=== PATIENT | female | born 1960 | race Caucasian/White ===

== ENCOUNTER 2016-03-10 06:43 | Day surgery (SDC) | payer MEDICARE, MEDICAID ==
[2016-03-10] VITALS (7 sets, daily range): BP systolic 138–164; BP diastolic 49–81; PULSE 80–114; TEMP 98.1–98.2
[~2016-03-10] VITALS: Ht 162.6 cm; Wt 82.8 kg
[~2016-03-10 06:43] MED LIST: ADVAIR 100/28 DISKUS IH; ADVAIR IH; ALBUTEROL0.09 MG/A1 IH; AMOXICILLIN 50500 MG PO; BACTRIM DS 8001 TAB PO; BUSPAR5 MG; CEPHALEXIN500 M1 PO; COLACE 100100 MG/CAP PO; CYMBALTA 30MG30 MG PO; DOXYCYCLINE 10100 MG PO; FLEXERIL 1010 MG/TAB PO; FLEXERIL10 MG PO; KEPPRA 500MG500 MG PO; LAMICTAL 100MG100 MG PO; LORTAB 5/500 501 TAB PO; MACROBID 1100 MG/CAP PO; MEDROL 4MG DOSPA4 MG PO; MOBIC15 MG PO; MOTRIN800 MG PO; NAPROSYN500 MG PO; NO HOME MEDICATIONS; NORCO 325 MG-51 TAB PO; NORCO 325 MG-7.1 TAB PO; PEN-VEE K500 MG PO; PERCOCET 325 MG1 TA2 PO; PREDNISONE20 MG PO; PRISTIQ 50 MG T50 MG PO; PRISTIQ25 MG PO; PROVENTIL0.09 MG/A1 IH; ROXICODONE 55 MG/TAB PO; RT ADVAIR 228 DISKUS IH; SEPTRA DS 8001 TAB PO; SEROQUEL50 MG PO; SINGULAIR; SINGULAIR10 MG PO; TYLENOL 325MG325 MG PO; ULTRAM 50MG TAB50 MG PO; VENTOLIN0.09 MG IH; VICODIN 5/5001 UDTAB PO; ZOCOR 20MG20 MG PO; ZOFRAN ODT4 MG PO; lamictal; same
[2016-03-10] MEDS ORDERED: NEURONTIN300 MG/CAP PO (08:19)
[2016-03-10] MEDS ORDERED: ZANAFLEX 4MG TAB4 MG PO (08:20)
[2016-03-10] MEDS ORDERED: VENTOLIN0.09 MG IH (08:22)
[2016-03-10] MEDS ORDERED: STOOL SOFTENER100 M2 PO (08:23)
[2016-03-10] MEDS ORDERED: TYLENOL 500MG500 MG PO (08:23)
[2016-03-10] MEDS ORDERED: ADVIL200 MG PO (08:24)
[2016-03-10] MEDS ORDERED: PERCOCET 325 MG1 TA2 PO (16:41)
== END 2016-03-10 20:00 | disposition home or self-care (01) ==
LOC: SDCO 06:43 → SURG 17:25 → SDCO 20:00
DX: C50.512 Malignant neoplasm of lower-outer quadrant of left female breast (principal); C50.411 Malignant neoplasm of upper-outer quadrant of right female breast; Z17.0 Estrogen receptor positive status [ER+]; F17.210 Nicotine dependence, cigarettes, uncomplicated
CPT/HCPCS: OP; A9541; J0690; J1100; J1170; J2405; J2704; J3010; J7120; Q9968

== ENCOUNTER 2016-04-01 09:52 | Day surgery (SDC) | payer MEDICARE, MEDICAID ==
[~2016-04-01] VITALS: Ht 162.6 cm; Wt 83.9 kg
[~2016-04-01 09:52] MED LIST changes: +ADVIL200 MG PO; +NEURONTIN300 MG/CAP PO; +STOOL SOFTENER100 M2 PO; +TYLENOL 500MG500 MG PO; +ZANAFLEX 4MG TAB4 MG PO
[2016-04-01] MEDS ORDERED: NORCO 325 MG-51 TAB PO (10:37)
[2016-04-01 11:35] VITALS: BP 143/85; PULSE 84; TEMP 98
[2016-04-01 14:05] VITALS: BP 134/63; PULSE 68; TEMP 97.6
[2016-04-01] MEDS ORDERED: PERCOCET 325 MG1 TA2 PO (14:05)
[2016-04-01 14:20] VITALS: BP 156/85; PULSE 76
[2016-04-01 14:35] VITALS: BP 159/80; PULSE 76
[2016-04-01 14:50] VITALS: BP 164/77; PULSE 75
== END 2016-04-01 15:00 | disposition home or self-care (01) ==
LOC: SDCO 09:52
DX: C50.412 Malignant neoplasm of upper-outer quadrant of left female breast (principal); C50.511 Malignant neoplasm of lower-outer quadrant of right female breast; C77.3 Secondary and unspecified malignant neoplasm of axilla and upper limb lymph nodes; F17.210 Nicotine dependence, cigarettes, uncomplicated
CPT/HCPCS: C1788; J0690; J1644; J2405; J2704; J3010; J7120

== ENCOUNTER 2016-09-04 14:15 | Outpatient (RCR) | payer MEDICARE, MEDICAID | END 2016-11-01 | disposition still patient (30) | LOC: MKS.ESL.PT | DX: C50.412 Malignant neoplasm of upper-outer quadrant of left female breast (principal); C50.511 Malignant neoplasm of lower-outer quadrant of right female breast; C77.3 Secondary and unspecified malignant neoplasm of axilla and upper limb lymph nodes; N64.4 Mastodynia; Z90.89 Acquired absence of other organs; Z90.12 Acquired absence of left breast and nipple; Z92.21 Personal history of antineoplastic chemotherapy | CPT/HCPCS: G8984-GP; G8985-GP ==

== ENCOUNTER 2017-04-03 20:10 | Emergency (ER) | payer MEDICARE, MEDICAID ==
[~2017-04-03] VITALS: Ht 160 cm; Wt 81.8 kg
[2017-04-03 20:15] VITALS: BP 114/66; TEMP 99.5
[2017-04-03] MEDS ORDERED: ARIMIDEX1 MG PO (22:01)
[2017-04-03] MEDS ORDERED: FLEXERIL 1010 MG/TAB PO (22:48)
[2017-04-03 23:06] VITALS: PULSE 72
== END 2017-04-03 23:06 | disposition home or self-care (01) ==
LOC: COL.ER 20:10
DX: S30.0XXA Contusion of lower back and pelvis, initial encounter (principal); M54.5 Low back pain; G89.29 Other chronic pain; Z85.3 Personal history of malignant neoplasm of breast; W00.0XXA Fall on same level due to ice and snow, initial encounter

== ENCOUNTER 2017-05-02 10:10 | Emergency (ER) | payer MEDICARE, MEDICAID ==
[~2017-05-02] VITALS: Ht 160 cm; Wt 86.4 kg
[~2017-05-02 10:10] MED LIST changes: +ARIMIDEX1 MG PO
[2017-05-02 10:20] VITALS: BP 130/62; TEMP 98.4
[2017-05-02 11:13] VITALS: PULSE 83
== END 2017-05-02 11:05 | disposition home or self-care (01) ==
LOC: COL.ER 10:10
DX: G89.29 Other chronic pain (principal); M54.9 Dorsalgia, unspecified; F31.9 Bipolar disorder, unspecified; F17.210 Nicotine dependence, cigarettes, uncomplicated; Z85.3 Personal history of malignant neoplasm of breast

== ENCOUNTER → 2017-05-03 | Outpatient (CLI) | payer MEDICARE, MEDICAID | LOC: MHCPAIN 10:05 | DX: G89.29 Other chronic pain (principal); M79.2 Neuralgia and neuritis, unspecified; M79.1 Myalgia; M54.9 Dorsalgia, unspecified | CPT/HCPCS: G0463 ==

== ENCOUNTER → 2017-05-03 | Outpatient (CLI) | payer MEDICARE, MEDICAID | LOC: MC.RAD 14:16 | DX: Z85.3 Personal history of malignant neoplasm of breast (principal); Z98.890 Other specified postprocedural states; Z92.3 Personal history of irradiation ==

== ENCOUNTER → 2017-07-05 | Outpatient (CLI) | payer MEDICARE, MEDICAID | LOC: MHCPAIN 12:46 | DX: G89.29 Other chronic pain (principal); M47.814 Spondylosis without myelopathy or radiculopathy, thoracic region; M79.2 Neuralgia and neuritis, unspecified; F17.200 Nicotine dependence, unspecified, uncomplicated | CPT/HCPCS: G0463 ==

== ENCOUNTER 2017-07-28 15:45 | Outpatient (RCR) | payer MEDICARE, MEDICAID | END 2017-08-03 | disposition home or self-care (01) | LOC: MKS.ESL.PT | DX: I97.2 Postmastectomy lymphedema syndrome (principal); C50.511 Malignant neoplasm of lower-outer quadrant of right female breast; C50.512 Malignant neoplasm of lower-outer quadrant of left female breast; M54.6 Pain in thoracic spine | CPT/HCPCS: G8978-GP; G8979-GP ==

== ENCOUNTER → 2017-11-02 | Outpatient (CLI) | payer MEDICARE, MEDICAID | LOC: MC.RAD 13:35 | DX: C50.511 Malignant neoplasm of lower-outer quadrant of right female breast (principal); Z90.10 Acquired absence of unspecified breast and nipple; Z98.890 Other specified postprocedural states ==

== ENCOUNTER 2018-01-31 13:58 | Emergency (ER) | payer MEDICARE, MEDICAID ==
[~2018-01-31] VITALS: Ht 160 cm; Wt 80.9 kg
[2018-01-31 14:13] VITALS: BP 157/92; PULSE 126; TEMP 97.8
== END 2018-01-31 15:45 | disposition left against medical advice (07) ==
LOC: COL.ER 13:58
DX: M25.511 Pain in right shoulder (principal)

== ENCOUNTER 2018-03-09 06:44 | Day surgery (SDC) | payer MEDICARE, MEDICAID ==
[~2018-03-09] VITALS: Ht 160 cm; Wt 83.3 kg
[2018-03-09] MEDS ORDERED: PAMELOR50 MG PO (07:09)
[2018-03-09] MEDS ORDERED: CYMBALTA 60MG60 MG PO (07:09)
[2018-03-09] MEDS ORDERED: 00186-0370-20 IH (07:10)
[2018-03-09] MEDS ORDERED: GLUCOPHAGE1000 MG PO (07:10)
[2018-03-09 07:27] VITALS: BP 117/79; PULSE 102; TEMP 97.6
[2018-03-09 08:30] VITALS: BP 109/80; PULSE 90; TEMP 97.6
--- NOTE | 2018-03-09 08:30 | NUR ---
PATIENT BACK FROM ENDO SUITE AFTER COLONOSCOPY. PATIENT WIDE AWAKE, TALKING TO NURSE. AMBULATED BACK TO CHAIR WITHOUT ASSISTANCE. IV FLUIDS INFUSING. VS APPEAR STABLE. NO COMPLAINT OF PAIN. WILL GET PATIENT FOOD AND DRINK. WILL CONTINUE TO MONITOR.
[2018-03-09 08:48] VITALS: BP 105/74; PULSE 92
--- NOTE | 2018-03-09 08:48 | NUR ---
PATIENT ALERT AND ORIENTED, TALKING WITH DAUGHTER. NO COMPLAINTS OF NAUSEA AND VOMITING WITH FOOD OR DRINK. VS APPEAR STABLE. DR HAS ALREADY TALKED TO DAUGHTER BEFORE PATIENT WAS BACK FROM ENDO SUITE. WILL TAKE OUT IV AND DISCHARGE PATIENT.
[2018-03-09 08:53] VITALS: BP 113/76; PULSE 91
== END 2018-03-09 09:00 | disposition home or self-care (01) ==
LOC: SDCO 06:44
DX: Z12.11 Encounter for screening for malignant neoplasm of colon (principal); Z85.3 Personal history of malignant neoplasm of breast; F17.210 Nicotine dependence, cigarettes, uncomplicated; K21.9 Gastro-esophageal reflux disease without esophagitis; J45.909 Unspecified asthma, uncomplicated; G89.29 Other chronic pain; M54.9 Dorsalgia, unspecified; R56.9 Unspecified convulsions; Z79.899 Other long term (current) drug therapy; E11.9 Type 2 diabetes mellitus without complications; Z79.84 Long term (current) use of oral hypoglycemic drugs
CPT/HCPCS: G0121; OP; J2250; J2704; J3010; J7030

== ENCOUNTER 2018-04-24 12:04 | Emergency (ER) | payer MEDICARE, MEDICAID | END 2018-04-24 15:03 | disposition left against medical advice (07) | LOC: COL.ER 12:04 | DX: E86.0 Dehydration (principal) ==

== ENCOUNTER → 2018-04-27 | Outpatient (CLI) | payer MEDICARE, MEDICAID ==
[~2018-04-27] MED LIST changes: +00186-0370-20 IH; +00186-0372-20 IH; +CYMBALTA 60MG60 MG PO; +GLUCOPHAGE1000 MG PO; +PAMELOR50 MG PO
== END ==
LOC: MC.RAD 12:25
DX: Z92.3 Personal history of irradiation (principal); Z98.890 Other specified postprocedural states; Z85.3 Personal history of malignant neoplasm of breast
CPT/HCPCS: G0279

== ENCOUNTER 2018-06-13 15:15 | Outpatient (RCR) | payer MEDICARE, MEDICAID | END 2018-06-21 10:20 | disposition home or self-care (01) | LOC: MKS.ESL.PT 15:15 | DX: I89.0 Lymphedema, not elsewhere classified (principal); M25.512 Pain in left shoulder; Z85.3 Personal history of malignant neoplasm of breast; Z90.13 Acquired absence of bilateral breasts and nipples; Z92.3 Personal history of irradiation; Z98.890 Other specified postprocedural states ==

== ENCOUNTER 2018-06-26 12:27 | Emergency (ER) | payer MEDICARE, MEDICAID ==
[~2018-06-26] VITALS: Ht 162.6 cm; Wt 80.8 kg
[2018-06-26 12:34] VITALS: BP 99/64
[2018-06-26 14:07] VITALS: PULSE 86; TEMP 97.8
== END 2018-06-26 14:07 | disposition home or self-care (01) ==
LOC: COL.ER 12:27
DX: M79.644 Pain in right finger(s) (principal); E11.9 Type 2 diabetes mellitus without complications; I10 Essential (primary) hypertension; J45.909 Unspecified asthma, uncomplicated; Z85.3 Personal history of malignant neoplasm of breast; F31.9 Bipolar disorder, unspecified; F17.210 Nicotine dependence, cigarettes, uncomplicated; Z79.84 Long term (current) use of oral hypoglycemic drugs

== ENCOUNTER → 2018-10-25 | Outpatient (CLI) | payer MEDICARE, MEDICAID | LOC: MHCPAIN 13:53 | DX: G89.29 Other chronic pain (principal); M47.817 Spondylosis without myelopathy or radiculopathy, lumbosacral region; M53.3 Sacrococcygeal disorders, not elsewhere classified; M47.814 Spondylosis without myelopathy or radiculopathy, thoracic region | CPT/HCPCS: G0463 ==

== ENCOUNTER 2018-12-12 14:45 | Outpatient (RCR) | payer MEDICARE, MEDICAID | END 2019-02-15 | disposition home or self-care (01) | LOC: MKS.ESL.PT | DX: M47.817 Spondylosis without myelopathy or radiculopathy, lumbosacral region (principal); M47.814 Spondylosis without myelopathy or radiculopathy, thoracic region; G89.29 Other chronic pain ==

== ENCOUNTER → 2019-04-19 | Outpatient (CLI) | payer MEDICARE, MEDICAID | LOC: MHCPAIN 13:47 | DX: M54.5 Low back pain (principal); M53.3 Sacrococcygeal disorders, not elsewhere classified; Z85.3 Personal history of malignant neoplasm of breast | CPT/HCPCS: G0463 ==

== ENCOUNTER → 2019-05-01 | Outpatient (CLI) | payer MEDICARE, MEDICAID | LOC: MC.RAD 09:54 | DX: Z12.31 Encounter for screening mammogram for malignant neoplasm of breast (principal); Z98.890 Other specified postprocedural states; Z98.82 Breast implant status; Z92.3 Personal history of irradiation; Z85.3 Personal history of malignant neoplasm of breast ==

== ENCOUNTER 2019-05-17 13:15 | Outpatient (RCR) | payer MEDICARE, MEDICAID | END 2019-07-26 | disposition home or self-care (01) | LOC: MKS.ESL.PT | DX: M53.3 Sacrococcygeal disorders, not elsewhere classified (principal); M54.16 Radiculopathy, lumbar region; G89.29 Other chronic pain ==

== ENCOUNTER → 2019-08-15 | Outpatient (CLI) | payer MEDICARE, MEDICAID | LOC: MHCPAIN 14:50 | DX: M47.814 Spondylosis without myelopathy or radiculopathy, thoracic region (principal); M54.5 Low back pain; M53.3 Sacrococcygeal disorders, not elsewhere classified; M54.16 Radiculopathy, lumbar region; G89.29 Other chronic pain | CPT/HCPCS: G0463 ==

== ENCOUNTER 2019-09-27 15:45 | Outpatient (RCR) | payer MEDICARE, MEDICAID | END 2019-11-20 | disposition home or self-care (01) | LOC: MKS.ESL.PT | DX: M54.16 Radiculopathy, lumbar region (principal) ==

== ENCOUNTER → 2020-05-31 | Outpatient (CLI) | payer MEDICARE, MEDICAID ==
[~2020-05-31] MED LIST changes: +MOTRIN 400400 MG/TAB PO; +ROBAXIN 50500 MG/TAB PO
== END ==
LOC: MC.RAD 14:04
DX: Z12.31 Encounter for screening mammogram for malignant neoplasm of breast (principal); Z98.890 Other specified postprocedural states; Z92.3 Personal history of irradiation; Z85.3 Personal history of malignant neoplasm of breast

== ENCOUNTER 2020-06-03 13:32 | Emergency (ER) | payer MEDICARE, MEDICAID ==
[~2020-06-03] VITALS: Ht 160 cm; Wt 71.8 kg
[~2020-06-03 13:32] MED LIST changes: -MOTRIN 400400 MG/TAB PO; -ROBAXIN 50500 MG/TAB PO
[2020-06-03 13:52] VITALS: BP 120/82; TEMP 98.2
[2020-06-03] MEDS ORDERED: ROBAXIN 50500 MG/TAB PO (15:32)
[2020-06-03] MEDS ORDERED: MOTRIN 400400 MG/TAB PO (15:32)
[2020-06-03 15:46] VITALS: PULSE 98
== END 2020-06-03 15:46 | disposition home or self-care (01) ==
LOC: COL.ER 13:32
DX: S09.90XA Unspecified injury of head, initial encounter (principal); M54.2 Cervicalgia; M54.6 Pain in thoracic spine; Z79.51 Long term (current) use of inhaled steroids; Z79.84 Long term (current) use of oral hypoglycemic drugs; W01.198A Fall on same level from slipping, tripping and stumbling with subsequent striking against other object, initial encounter; Y92.096 Garden or yard of other non-institutional residence as the place of occurrence of the external cause

== ENCOUNTER 2020-07-10 15:30 | Outpatient (RCR) | payer MEDICARE, MEDICAID ==
[~2020-07-10 15:30] MED LIST changes: +MOTRIN 400400 MG/TAB PO; +ROBAXIN 50500 MG/TAB PO
== END 2020-09-29 ==
LOC: MKS.ESL.PT
DX: Z85.3 Personal history of malignant neoplasm of breast (principal); Z87.2 Personal history of diseases of the skin and subcutaneous tissue

== ENCOUNTER → 2020-12-02 | Outpatient (CLI) | payer MEDICARE, MEDICAID | LOC: MHCPAIN 15:23 | DX: M47.814 Spondylosis without myelopathy or radiculopathy, thoracic region (principal); M54.6 Pain in thoracic spine; M79.2 Neuralgia and neuritis, unspecified; G89.29 Other chronic pain | CPT/HCPCS: G0463 ==

== ENCOUNTER → 2021-06-04 | Outpatient (CLI) | payer MEDICARE, MEDICAID | LOC: MC.RAD 13:35 | DX: Z12.31 Encounter for screening mammogram for malignant neoplasm of breast (principal); Z85.3 Personal history of malignant neoplasm of breast ==

== ENCOUNTER 2021-09-07 08:59 | Emergency (ER) | payer MEDICARE, MEDICAID ==
[~2021-09-07] VITALS: Ht 160 cm; Wt 70.5 kg
== END 2021-09-07 10:00 | disposition home or self-care (01) ==
LOC: COL.ER 08:59
DX: M54.41 Lumbago with sciatica, right side (principal)

== ENCOUNTER 2021-09-29 14:23 | Emergency (ER) | payer MEDICARE, MEDICAID ==
[~2021-09-29] VITALS: Ht 160 cm; Wt 68.2 kg
[2021-09-29 14:55] VITALS: BP 125/73
[2021-09-29 16:12] VITALS: PULSE 94
== END 2021-09-29 16:12 | disposition home or self-care (01) ==
LOC: COL.ER 14:23
DX: M54.42 Lumbago with sciatica, left side (principal); Z20.822 Contact with and (suspected) exposure to COVID-19
CPT/HCPCS: J1885

== ENCOUNTER → 2021-10-20 | Outpatient (CLI) | payer MEDICARE, MEDICAID | LOC: MHCPAIN 12:37 | DX: M54.6 Pain in thoracic spine (principal); M79.2 Neuralgia and neuritis, unspecified; M54.17 Radiculopathy, lumbosacral region; G89.29 Other chronic pain | CPT/HCPCS: G0463 ==

== ENCOUNTER 2023-02-26 15:08 | Emergency (ER) | payer MEDICARE ==
[~2023-02-26] VITALS: Ht 157.5 cm; Wt 58.6 kg
[2023-02-26 15:17] VITALS: BP 109/71; TEMP 98.1
[2023-02-26] MEDS ORDERED: PREDNISONE20 MG PO (17:39)
[2023-02-26] MEDS ORDERED: DOXYCYCLINE HY100 MG PO (17:39)
[2023-02-26 18:00] VITALS: PULSE 98
== END 2023-02-26 18:01 | disposition home or self-care (01) ==
LOC: COL.ER 15:08
DX: S99.921A Unspecified injury of right foot, initial encounter (principal); J20.9 Acute bronchitis, unspecified; F17.210 Nicotine dependence, cigarettes, uncomplicated; X58.XXXA Exposure to other specified factors, initial encounter
CPT/HCPCS: J7512

== ENCOUNTER → 2023-09-06 | Outpatient (CLI) | payer MEDICARE ==
[~2023-09-06] MED LIST changes: +DOXYCYCLINE HY100 MG PO
== END ==
LOC: MC.RAD 14:24
DX: Z12.31 Encounter for screening mammogram for malignant neoplasm of breast (principal)

== ENCOUNTER 2023-12-26 09:06 | Emergency (ER) | payer MEDICARE, MEDICAID ==
[~2023-12-26] VITALS: Ht 157.5 cm; Wt 53.2 kg
[2023-12-26 09:46] VITALS: BP 101/67; PULSE 71; TEMP 98.4
== END 2023-12-26 10:21 | disposition left against medical advice (07) ==
LOC: COL.ER 09:06
DX: E11.649 Type 2 diabetes mellitus with hypoglycemia without coma (principal); Z79.84 Long term (current) use of oral hypoglycemic drugs

== ENCOUNTER 2023-12-26 12:41 | Emergency (ER) | payer MEDICARE, MEDICAID ==
[~2023-12-26] VITALS: Ht 160 cm; Wt 53.2 kg
[2023-12-26 13:06] VITALS: TEMP 98.3
[2023-12-26] MEDS ORDERED: Ibuprofen 600 MG TAB PO ONE (14:15)
[2023-12-26] MEDS ORDERED: Acetaminophen 500 MG TAB PO ONE (14:15)
[2023-12-26 14:33] VITALS: BP 104/65; PULSE 80
== END 2023-12-26 14:34 | disposition home or self-care (01) ==
LOC: COL.ER 12:41
DX: S30.0XXA Contusion of lower back and pelvis, initial encounter (principal); S09.90XA Unspecified injury of head, initial encounter; W01.198A Fall on same level from slipping, tripping and stumbling with subsequent striking against other object, initial encounter